=== PATIENT | female | born 1975 | race Caucasian/White ===

== ENCOUNTER 2018-07-08 09:10 | Emergency (ER) | payer MEDICAID ==
[~2018-07-08] VITALS: Ht 162.6 cm; Wt 90.7 kg
[2018-07-08 10:18] VITALS: BP 132/80
[2018-07-08] MEDS ORDERED: LORazepam 0.5 MG TAB PO ONE (10:45)
[2018-07-08] MEDS ORDERED: ACETAMINOPHEN 325 MG TAB PO ONE (11:15)
== END 2018-07-08 11:55 | disposition home or self-care (01) ==
LOC: ER 09:10

== ENCOUNTER 2018-07-25 23:08 | Emergency (ER) | payer MEDICAID ==
[~2018-07-25] VITALS: Ht 167.6 cm; Wt 90.7 kg
[2018-07-26] MEDS ORDERED: KETOROLAC TROMETH 60MG/2ML VIAL IM ONE (02:00)
[2018-07-26 02:26] VITALS: BP 123/78
== END 2018-07-26 03:10 | disposition home or self-care (01) ==
LOC: EDBD 23:08 → ER 23:19
DX: K08.89 Other specified disorders of teeth and supporting structures (principal); G89.4 Chronic pain syndrome
CPT/HCPCS: 96372; 99283; J1885

== ENCOUNTER 2019-02-19 21:01 | Emergency (ER) | payer MEDICAID ==
[~2019-02-19] VITALS: Ht 162.6 cm; Wt 90.7 kg
[2019-02-19 22:59] LABS: Urine WBC None Seen /hpf (0 - 5)
[2019-02-19 23:07] LABS: Basophils # (auto) 0.1 uL; Basophils % (auto) 0.9 % (0.0-2.0); Eosinophils # (auto) 0.2 uL; Eosinophils % (auto) 2.1 % (0.0-7.0); Hematocrit 37.3 % (36.0-46.0); Hemoglobin 12.2 g/dL (12.2-16.2); Lymphocytes # (auto) 2.3 uL; Lymphocytes % (auto) 29.2 % (10.0-50.0); Mean Corpuscular Hgb Conc. 32.8 g/dL (32.0-36.0); Mean Corpuscular Volume 85.5 fL (80.0-100.0); Monocytes # (auto) 0.5 uL; Monocytes % (auto) 6.6 % (0.0-12.0); Neutrophils # (auto) 4.9 uL; Neutrophils % (auto) 61.2 % (37.0-80.0); Nucleated Red Blood Cells % 0.1 %; Platelet Count (auto) 373 10^3/uL (140-450); Red Blood Cells 4.36 10^6/uL (4.0-5.20); Red Cell Distribution Width 16.5 % (11.8-14.3)
[2019-02-19 23:23] LABS: Urine Bacteria NONE SEEN /hpf (None Seen); Urine Blood Negative /uL (Negative); Urine Specific Gravity 1.001 (1.001-1.035)
[2019-02-19 23:32] LABS: Albumin 3.5 g/dL (3.4-5.0); Calcium 8.8 mg/dL (8.5-10.1); Potassium 4.1 mmol/L (3.5-5.1)
[2019-02-19 23:35] LABS: BUN/Creatinine Ratio 6.7
[2019-02-19 23:37] LABS: Bilirubin, Total 0.4 mg/dL (0.2-1.0); Total Protein 7.5 g/dL (6.4-8.2)
[2019-02-19 23:41] LABS: Alcohol, Urine < 3.0 mg/dL (0-5); Amphetamine Screen, Urine NEGATIVE (NEGATIVE); Barbiturate Scree,Urine NEGATIVE (NEGATIVE); Benzodiazephine Screen, Urine NEGATIVE (NEGATIVE); Cannabinoid Screen, Urine POSITIVE (NEGATIVE); Cocaine Screen, Urine NEGATIVE (NEGATIVE)
[2019-02-19 23:48] LABS: Opiate Scree,Urine NEGATIVE (NEGATIVE); Phencyclidine Screen, Urine NEGATIVE (NEGATIVE)
[2019-02-20 07:33] VITALS: BP 101/50
== END 2019-02-20 08:52 | disposition home or self-care (01) ==
LOC: EDBD 21:01 → ER 21:01
DX: R10.84 Generalized abdominal pain (principal); B35.6 Tinea cruris; B35.3 Tinea pedis; F12.10 Cannabis abuse, uncomplicated; E11.9 Type 2 diabetes mellitus without complications; F17.210 Nicotine dependence, cigarettes, uncomplicated; Z59.0 Homelessness
CPT/HCPCS: 36415; 80053; 80307; 80320; 81001; 82150; 83690; 85025

== ENCOUNTER → 2019-10-24 | Emergency (ER) | payer MEDICAID | END | disposition left against medical advice (07) | LOC: ER 23:57 | DX: Z04.3 Encounter for examination and observation following other accident (principal); Z53.21 Procedure and treatment not carried out due to patient leaving prior to being seen by health care provider ==

== ENCOUNTER 2022-08-27 00:33 | Emergency (ER) | payer MEDICAID ==
[~2022-08-27] VITALS: Ht 162.6 cm; Wt 104.5 kg
[2022-08-27] MEDS ORDERED: IBUP800T26 PO (02:51)
[2022-08-27 05:30] VITALS: BP 98/48
[2022-08-27] MEDS ORDERED: HYDROcodone-ACET 5/325MG TAB PO ONE (05:45)
== END 2022-08-27 05:38 | disposition home or self-care (01) ==
LOC: ER 00:33
DX: S00.83XA Contusion of other part of head, initial encounter (principal); E11.9 Type 2 diabetes mellitus without complications; F17.210 Nicotine dependence, cigarettes, uncomplicated; F12.90 Cannabis use, unspecified, uncomplicated; Z59.00 Homelessness unspecified; Y04.2XXA Assault by strike against or bumped into by another person, initial encounter; Y93.89 Activity, other specified; Y92.89 Other specified places as the place of occurrence of the external cause; Y99.8 Other external cause status
CPT/HCPCS: 70450; 71045; 71250; 72125; 74176

== ENCOUNTER 2022-12-31 17:07 | Emergency (ER) | payer MEDICAID ==
[~2022-12-31] VITALS: Ht 162.6 cm; Wt 92.0 kg
[~2022-12-31 17:07] MED LIST: IBUP-1455 PO
[2022-12-31 18:51] VITALS: BP 155/88
[2022-12-31] MEDS ORDERED: CEPHALEXIN 250 MG CAP PO ONE (23:00)
[2022-12-31] MEDS ORDERED: HYDROcodone-ACET 5/325MG TAB PO ONE (23:00)
[2022-12-31] MEDS ORDERED: IBU600T PO (23:01)
[2022-12-31] MEDS ORDERED: MUPI2OIN2 EX (23:02)
[2022-12-31] MEDS ORDERED: CEPH500T PO (23:02)
== END 2023-01-01 01:09 | disposition home or self-care (01) ==
LOC: ER 17:07 → EDBD 17:07 → EDUNIT# 17:07 → ER 01-01 01:09
DX: K02.9 Dental caries, unspecified (principal); L55.0 Sunburn of first degree; E11.9 Type 2 diabetes mellitus without complications; F17.210 Nicotine dependence, cigarettes, uncomplicated; F15.90 Other stimulant use, unspecified, uncomplicated; Z79.1 Long term (current) use of non-steroidal anti-inflammatories (NSAID)

== ENCOUNTER 2024-07-25 03:20 | Emergency (ER) | payer MEDICAID ==
[~2024-07-25 03:20] MED LIST changes: +CEPH500T PO; +IBU600T PO; +MUPI2OIN2 EX
== END 2024-07-25 03:31 | disposition left against medical advice (07) ==
LOC: ER 03:20
DX: R68.89 Other general symptoms and signs (principal); Z53.21 Procedure and treatment not carried out due to patient leaving prior to being seen by health care provider